=== PATIENT | female | born 1965 | race Caucasian/White ===

== ENCOUNTER 2018-07-04 18:20 | Inpatient (IN) | payer MEDICAID, OTHER ==
--- NOTE | 2018-07-04 19:16 | C.PDOC ---
History Of Present Illness 53 year old female presents to the ED requesting alcohol detox. Patient states her last drink was earlier today. Patient denies SI/HI, hallucinations, other substance abuse. Time Seen by Provider: 07/04/18 19:16 Chief Complaint (Nursing): Substance Abuse History Per: Patient History/Exam Limitations: intoxication Onset/Duration Of Symptoms: Hrs Current Symptoms Are (Timing): Still Present Suicide/Self Injury Attempted (Context): None Modifying Factor(s): Alcohol Associated Symptoms: denies: Depression, Suicidal Thoughts, Suicidal Plan Involuntary Hold By: None Recent travel outside of the [place]: No Additional History Per: Patient Past Medical History Reviewed: Historical Data, Nursing Documentation, Vital Signs Vital Signs: Last Vital Signs Temp 98.4 F 07/04/18 18:32 Pulse 86 07/04/18 18:32 Resp 18 07/04/18 18:32 BP 135/82 07/04/18 18:32 Pulse Ox 100 07/04/18 20:00 - Medical History PMH: Anxiety, Bipolar Disorder, Depression, Gall Bladder Disease, Hepatitis (c) , HTN, Kidney Stones Denies: Chronic Kidney Disease Surgical History: Appendectomy - [facility] Procedures LAPAROSCOP LYSIS-PERITONEAL ADHES (07/25/15) LAPAROSCOPIC CHOLECYSTECTOMY (07/25/15) VACCINATION NEC (07/25/15) Family History: States: Unknown Family Hx, Diabetes - Social History Hx Alcohol Use: Yes Hx Substance Use: No - Immunization History Hx Tetanus Toxoid Vaccination: No Hx Influenza Vaccination: No Review Of Systems Constitutional: Negative for: Fever, Chills Cardiovascular: Negative for: Chest Pain Respiratory: Negative for: Shortness of Breath Gastrointestinal: Negative for: Nausea, Vomiting, Abdominal Pain Skin: Negative for: Rash Neurological: Negative for: Weakness, Numbness Psych: Positive for: Other (tremors). Negative for: Depression, Suicidal ideation Physical Exam - Physical Exam Appears: Non-toxic, No Acute Distress Skin: Warm, Dry Head: Normacephalic Eye(s): bilateral: Normal Inspection Oral Mucosa: Moist Neck: Supple Chest: Symmetrical Cardiovascular: Rhythm Regular Respiratory: No Rales, No Rhonchi, No Wheezing Gastrointestinal/Abdominal: Soft, No Tenderness, No Guarding, No Rebound Back: No CVA Tenderness Extremity: No Tenderness, No Swelling Extremity: Bilateral: Atraumatic, Normal Color And Temperature, Normal ROM Neurological/Psych: Oriented x3, Normal Speech, Other (mild tremors) Gait: Steady ED Course And Treatment - Laboratory Results Result Diagrams: 07/04/18 19:25 07/04/18 19:25 O2 Sat by Pulse Oximetry: 100 (ON RA) Pulse Ox Interpretation: Normal Progress Note: Plan: - Labs. - Librium 100 mg PO. - Crisis evaluation. - UA Disposition Discussed With Dr.: Amy West Comment: accepted the pt on his service and took over the care at 8:30PM Doctor Will See Patient In The: Hospital Counseled Patient/Family Regarding: Studies Performed, Diagnosis - Disposition Disposition: HOSPITALIZED Disposition Time: 19:16 Condition: FAIR Forms: [employer] [facility] [employer] (Belarusian) - POA Present On Arrival: None - Clinical Impression Clinical Impression: Alcohol use disorder - Scribe Statement The provider has reviewed the documentation as recorded by the Scribe Frederic Keen All medical record entries made by the Scribe were at my direction and personally dictated by me. I have reviewed the chart and agree that the record accurately reflects my personal performance of the history, physical exam, medical decision making, and the department course for this patient. I have also personally directed, reviewed, and agree with the discharge instructions and disposition. Decision To Admit - Pt Status Changed To: Hospital Disposition Of: Inpatient - Admit Certification Admit to Inpatient:: After my assessment, the patient will require hospitalization for at least two midnights. This is because of the severity of symptoms shown, intensity of services needed, and/or the medical risk in this patient being treated as an outpatient. - InPatient: Physician Admission Certification: I certify that this patient requires 2 or more midnights of care for the following reason:: After my assessment, the patient will require hospitalization for at least two midnights. This is because of the severity of symptoms shown, intensity of services needed, and/or the medical risk in this patient being treated as an outpatient. - . Bed Request Type: Detox Admitting Physician: Amy West Patient Diagnosis: Alcohol use disorder
[2018-07-04 19:34] LABS: BASO % 0.8 % (0.0-2.0); EOS % 0.8 % (0.0-4.0); HEMOGLOBIN 11.8 g/dL (11.0-16.0); LYMPH # 1.7 K/uL (1.0-4.3); LYMPH % 33.9 % (20.0-40.0); MEAN CELL VOLUME 97.3 fL (81.0-99.0); MEAN CORPUSCULAR HEMOGLOBIN 33.8 pg (27.0-31.0); MEAN CORPUSCULAR HGB CONC 34.8 g/dL (33.0-37.0); MEAN PLATELET VOLUME 8.9 fL (7.2-11.7); MONO # 0.5 K/uL (0.0-0.8); NEUT # 2.7 K/uL (1.8-7.0); NEUT % 53.5 % (50.0-75.0); NRBC % 0.3 % (0.0-2.0); RBC 3.49 Mil/uL (3.80-5.20); WHITE BLOOD COUNT 4.9 K/uL (4.8-10.8)
[2018-07-04 19:46] LABS: HCG,QUALITATIVE URINE NEGATIVE (NEGATIVE)
[2018-07-04 19:48] LABS: SQUAMOUS EPITHIAL 4 /hpf (0-5); URINE BACTERIA RARE (<OCC); URINE BILIRUBIN NEGATIVE (NEGATIVE); URINE BLOOD NEGATIVE (NEGATIVE); URINE CLARITY Clear (Clear); URINE COLOR Amber (YELLOW); URINE GLUCOSE (UA) NORMAL (Normal); URINE LEUKOCYTE ESTERASE NEG Leu/uL (Negative); URINE PROTEIN NEGATIVE (NEGATIVE); URINE UROBILINOGEN NORMAL mg/dL (0.2-1.0)
[2018-07-04 19:57] LABS: ALB/GLOB RATIO 0.6 (1.0-2.1); ALBUMIN 2.8 g/dL (3.5-5.0); CALCIUM 8.2 mg/dl (8.6-10.4)
[2018-07-04 20:01] LABS: BARBITURATES, UR NEGATIVE (NEGATIVE); BENZODIAZEPINES, UR NEGATIVE (NEGATIVE); OPIATES, UR NEGATIVE (NEGATIVE); PHENCYCLIDINE, UR NEGATIVE (NEGATIVE)
--- NOTE | 2018-07-04 20:47 | PCM.BM ---
<Misti Hopper - Last Filed: 07/04/18 20:45> Treatment Plan Problems - Problems identified on initial assessmt potiential for autonomic instability related to alcohol abuse Date Initiated: 07/04/18 Time Initiated: 20:46 Assessment reference: NA Status: Active Treatment assets and liabiliti Patient Assests: ADL independent, negotiates basic needs Patient Liabilities: live alone, substance abuse, medical problems - Milieu Protocol Maintain good personal hygiene: daily Encourage regular showers, daily Remind patient to perform daily oral care, daily Assist patient to perform ADL's Maintain personal safety: every shift Educate patient to report safety concerns to staff, every shift Monitor environment for contraband/sharps Medication safety: Monitor for expected outcome, potential side effects: every shift, Assess barriers to learning: every shift, Assess readiness for medication education: every shift <Alistair Huang - Last Filed: 07/05/18 22:53> - Diagnosis (1) Alcohol use disorder Status: Acute Interventions: 07/05/18 22:53 * Assess 7x/week regarding severity of withdrawal * Educate regarding risks, benefits, side effects and alternatives of medications * Use Motivational Interviewing for abstinence * Use CBT for relapse prevention * Medication management for withdrawal symptoms * Encourage medication assisted treatment *
[2018-07-05] MEDS: Multiple Vitamins Tab PO SCH (09:52)
--- NOTE | 2018-07-05 14:36 | PCM.PSYCH ---
Initial Psychiatric Evaluation - Initial Psychiatric Evaluation Type of Admission: Voluntary Legal Status: Capacity Chief Complaint (in patient's own words): "I need detox from alcohol." History of Present Illness and Precipitating Events: Pt is seen, chart reviewed, case discussed with staff. Pt is a 53 y/o female who presented to the ED for alcohol detox; pt lives in an apartment in by herself; pt is with no children; pt is currently unemployed. 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 Pt has a hx of heroin abuse; pt began using heroin at the age of 15 and was using 15-20 bags/day IV; pt has been clean for the past 15 years and states that she got clean by spending time with family. Pt has never been to rehab or detox in the past. Pt smokes 2 cigarettes/day. Pt describes and displays significant withdrawal sxs including tremors, leg restlessness, tactile hallucinations, v/d/n, sweating, shakes, and chills. Past medical hx includes hepatitis C, depression, and bipolar disorder diagnosed at 18 y/o; pt was taking Seroquel, Ambien at night, and Neurontin for her bipolar disorder but stopped taking her medications in March when she was hospitalized; pt denies a hx of seizures. Family hx denied. Surgical hx includes brain aneurysm in 2007, appendectomy, and kidney stones. Current medications include daily multivitamin, Lasix, Norvasc, and another for the liver which she cannot recall. Pt plans to stay with family after detox; pt says that she is willing to consider an outpatient program as well. Current Medications: Active Medications Generic Name Dose Route Start Last Admin Trade Name Freq PRN Reason Stop Dose Admin Chlordiazepoxide 25 mg 07/05/18 00:00 07/05/18 13:06 Librium PO 07/08/18 23:59 25 mg Q6 SUE Administration Taper Chlordiazepoxide 25 mg 07/04/18 21:54 07/05/18 09:52 Librium PO 25 mg Q4H PRN Administration Alcohol Withdrawal Folic Acid 1 mg 07/05/18 10:00 07/05/18 09:52 Folic Acid PO 1 mg DAILY SUE Administration Furosemide 20 mg 07/05/18 10:45 07/05/18 11:55 Lasix PO Not Given DAILY SUE Midodrine 5 mg 07/05/18 10:00 07/05/18 11:20 Proamatine PO 5 mg TID SUE Administration Multivitamins 1 tab 07/05/18 10:00 07/05/18 09:52 Hexavitamin PO 1 tab DAILY SUE Administration Spironolactone 50 mg 07/05/18 10:45 07/05/18 11:55 Aldactone PO Not Given BID SUE Thiamine HCl 100 mg 07/05/18 10:00 07/05/18 09:52 Vitamin B1 Tab PO 100 mg DAILY SUE Administration Topiramate 25 mg 07/05/18 10:15 07/05/18 11:21 Topamax PO 25 mg BID SUE Administration Trazodone HCl 50 mg 07/04/18 21:41 07/04/18 21:53 Desyrel PO 50 mg HS PRN Administration insomnia Past Psychiatric History - Past Psychiatric History Previous Treatment History: None Pertinent Medical Hx (Current Medical&Sleep Prob, Allergies): Allergies Allergy/AdvReac Type Severity Reaction Status Date / Time shrimp Allergy Verified 07/04/18 18:35 Gabapentin [Neurontin] 300 mg PO DAILY 05/10/15 Hydroxyzine Pamoate [Vistaril] 1 tab PO DAILY PRN 05/10/15 Quetiapine Fumarate [Seroquel] 400 mg PO DAILY 05/10/15 Furosemide [Lasix] 20 mg PO DAILY 07/25/15 Metronidazole [Flagyl] 500 mg PO TID #9 tab 07/31/15 amLODIPine [Norvasc] 10 mg PO DAILY #0 tab 07/31/15 oxyCODONE/Acetaminophen [Percocet 5/325 mg Tab] 1 tab PO Q6 #0 tab 07/31/15 Review of Systems - Psychiatric Psychiatric: Abnormal Sleep Pattern, Anhedonia, Behavioral Changes, Change in Appetite, Depression, Difficulty Concentrating, Tactile Hallucinations. absent : Auditory Hallucinations, Hallucinations, Homicidal Ideation, Irritability, Mood Swings, Panic Attacks, Paranoia, Suicidal Ideation, Visual Hallucinations Mental Status Examination - Personal Presentation Personal Presentation: Looks older than stated age - Affect Affect: Blunted - Motor Activity Motor Activity: Calm - Reliability in Providing Information Reliability in Providing Information: Good - Speech Speech: Organized - Mood Mood: Depressed - Formal Thought Process Formal Thought Process: No Impairment - Obsessions/Compulsions Obsessions: No Compulsions: No - Cognitive Functions Orientation: Person, Place, Situation, Time Sensorium: Alert Attention/Concentration: Attentive Abstract Thinking: [place] Estimate of Intelligence: Average Judgement: Intact, as evidence by: Insight regarding need for hospitalization Memory: Recent intact, as evidence by: Ability to recall events of the day, Remote intact, as evidenced by: Abilit to recall sig. life events - Risk Risk: Withdrawal, Diminished functioning - Strength & Assets Inventory Strength & Assets Inventory: Life experience, Cooperative - Limitations Limitations: Living alone DSM 5 DX - DSM 5 DSM 5 Diagnosis: Alcohol Withdrawal Alcohol Use Disorder, severe Depressive d/o - unspecified - Recommended/Plan of Treatment Treatment Recommendations and Plan of Treatment: Taper with Librium As needed medications Topamax 25 mg BID for cravings All risks, benefits and alternatives of the meds discussed, and the pt agreed and understood. Attend groups and activities Supportive therapy and psychoeducation [place] for abstinence CBT for relapse prevention Encourage MAT Refer to rehab or IOP, and self-help groups 35 min Projected ELOS: 4-5 days
[2018-07-06] MEDS: Multiple Vitamins Tab PO SCH (09:09)
--- NOTE | 2018-07-06 16:23 | PCM.PYCHPN ---
Psychiatric Progress Note - Psychiatric Progress Note Patient seen today, length of contact: 15 minutes Patient Chief Complaint: "I am very anxious." Problems Identified/Issues Discussed: Pt is seen, chart reviewed, case discussed with staff. Pt is compliant with medications and reports no side-effects. Symptoms are improving but needs more time to stabilize; pt slept well but woke up throughout the night; pt feels very anxious to the point where it is hard to speak; pt complains of leg stiffness. Pt attends groups and activities. Support given, psycho-education provided. After care discussed. Medication Change: Yes Medical Record Reviewed: Yes Mental Status Examination - Cognitive Function Orientation: Person, Place, Situation, Time Memory: Intact Attention: Poor Concentration: Poor Association: WNL Fund of Knowledge: WNL - Mood Mood: Depressed - Affect Affect: Blunted - Formal Thought Process Formal Thought Process: No Impairment - Suicidal Ideation Suicidal Ideation: No - Homicidal Ideation Homicidal Ideation: No Goal/Treatment Plan - Goal/Treatment Plan Need for Continued Stay: Discharge may exacerbated symptoms Progress Toward Problem(s) and Goals/Treatment Plan: Continue medications; Neurontin 100 mg TID added. Support and psychoeducation daily Attend groups and activities daily After care planning by SHE 15 min
[2018-07-07] MEDS: Multiple Vitamins Tab PO SCH (09:18)
--- NOTE | 2018-07-07 19:39 | PCM.PYCHPN ---
Psychiatric Progress Note - Psychiatric Progress Note Patient seen today, length of contact: 15 minutes Patient Chief Complaint: I DO NOT WANT TO GO TO A REHAB I WANT TO GO LIVE WITH MY RELATIVES WHO ARE [employer] Problems Identified/Issues Discussed: PT SEEN AND\EXAMINED DISCUSSED WITH STAFF AFTERCARE NO IOP NO AA/NA SAYS SHE HAS BEEN CLEAN FROM HEROIN 15 YEARS AND SHE DID THIS ONLY WITH HER FAMILY WHO ARE [place] Medical Problems: NOTHING ACUTE Diagnostic Results: REVIEWED DSM 5 Symptoms Update: SLEEP IS FRAGMENTED APPETITE IS MODERATE Medication Change: Yes (TAPER VCHANGES DOSE EVERYBDAY) Medical Record Reviewed: Yes Mental Status Examination - Cognitive Function Orientation: Person, Place, Time Memory: Intact Attention: WNL Concentration: WNL Association: WNL Fund of Knowledge: WNL - Mood Mood: Depressed, Anxious - Affect Affect: Blunted - Speech Speech: Appropriate - Formal Thought Process Formal Thought Process: No Impairment - Suicidal Ideation Suicidal Ideation: No - Homicidal Ideation Homicidal Ideation: No Goal/Treatment Plan - Goal/Treatment Plan Need for Continued Stay: Discharge may exacerbated symptoms
[2018-07-08] MEDS: Multiple Vitamins Tab PO SCH (09:10)
[2018-07-08 09:11] VITALS: BP 112/75
[2018-07-08 10:44] VITALS: PULSE 87; RESP 20; TEMP 98.1; O2SAT 100
== END 2018-07-08 10:47 | disposition home or self-care (01) | DRG 751 ==
LOC: C.ER 18:20 → C.7D 20:29
PROVIDERS: ADMIT Psychiatry & Neurology Psychiatry; ATTEND Psychiatry & Neurology Psychiatry
PROC: HZ2ZZZZ Detoxification Services for Substance Abuse Treatment (ICD-10-PCS; principal; 2018-07-04)
PROC: HZ52ZZZ Individual Psychotherapy for Substance Abuse Treatment, Cognitive-Behavioral (ICD-10-PCS; 2018-07-04)
PROC: HZ59ZZZ Individual Psychotherapy for Substance Abuse Treatment, Supportive (ICD-10-PCS; 2018-07-04)
PROC: HZ56ZZZ Individual Psychotherapy for Substance Abuse Treatment, Psychoeducation (ICD-10-PCS; 2018-07-04)
PROC: HZ42ZZZ Group Counseling for Substance Abuse Treatment, Cognitive-Behavioral (ICD-10-PCS; 2018-07-04)
PROC: HZ46ZZZ Group Counseling for Substance Abuse Treatment, Psychoeducation (ICD-10-PCS; 2018-07-04)
PROC: GZHZZZZ Group Psychotherapy (ICD-10-PCS; 2018-07-04)
PROC: GZ58ZZZ Individual Psychotherapy, Cognitive-Behavioral (ICD-10-PCS; 2018-07-04)
PROC: GZ56ZZZ Individual Psychotherapy, Supportive (ICD-10-PCS; 2018-07-04)
DX: F10.230 Alcohol dependence with withdrawal, uncomplicated (principal); Y90.5 Blood alcohol level of 100-119 mg/100 ml; F17.210 Nicotine dependence, cigarettes, uncomplicated; F31.9 Bipolar disorder, unspecified; I10 Essential (primary) hypertension